=== PATIENT | female | born 1945 | race Hispanic/Latino ===

== ENCOUNTER 2022-08-02 17:58 | Emergency (ER) | payer OTHER, MEDICARE ==
[~2022-08-02] VITALS: Ht 152.4 cm; Wt 66.2 kg
[2022-08-02] MEDS ORDERED: LIDOCAINE HCL 2% VISCOUS 15 ML UDCUP PO ONE (19:00)
[2022-08-02] MEDS ORDERED: FAMOTIDINE 20MG VIAL IV ONE (19:00)
[2022-08-02] MEDS ORDERED: MAG/ALUM/SIMETH 30 ML UDCUP PO ONE (19:00)
[2022-08-02] MEDS ORDERED: DICYCLOMINE HCL 10 MG/5 ML ML PO ONE (19:00)
[2022-08-02] MEDS ORDERED: ONDANSETRON 4MG INJ IVP ONE (19:00)
[2022-08-02 19:22] LABS: BASOPHILS % (AUTO) 0.7 % (0.0-5.0); EOSINOPHILS % (AUTO) 2.1 % (0.0-8.0); HEMATOCRIT 40.8 % (36-48); LYMPHOCYTES % (AUTO) 31.9 % (21.0-51.0); MEAN CORPUSCULAR HGB CONC 33.1 g/dL (32.0-36.0); MEAN CORPUSCULAR VOLUME 90.7 fL (79-99); MONOCYTES % (AUTO) 8.3 % (3.0-13.0); NEUTROPHILS % (AUTO) 56.6 % (40.0-77.0); PLATELET COUNT (AUTO) 382 K/uL (130-400); RED CELL DISTRIBUTION WIDTH 14.1 % (11.0-15.5)
[2022-08-02 19:23] LABS: APPEARANCE,URINE CLEAR (CLEAR); BILIRUBIN,URINE NEGATIVE (NEGATIVE); COLOR,URINE YELLOW (YELLOW); GLUCOSE, URINE (UA) NEGATIVE (NEGATIVE); KETONES,URINE NEGATIVE (NEGATIVE); LEUKOCYTE ESTERASE ,URINE TRACE (NEGATIVE); NITRATE,URINE NEGATIVE (NEGATIVE); OCCULT BLOOD,URINE NEGATIVE (NEGATIVE); PROTEIN,URINE NEGATIVE (NEGATIVE); UROBILINOGEN,URINE 0.2 mg/dL (0.2-1.0)
[2022-08-02 19:28] LABS: CREATININE 3.7 mg/dL (0.5-1.5); POTASSIUM 3.4 mmol/L (3.5-5.1)
[2022-08-02 19:30] LABS: BACTERIA,URINE Few /HPF (None Seen); RBC,URINE 0-1 /HPF (0-1)
[2022-08-02 19:31] LABS: SQUAMOUS EPITHELIAL CELL,UR Rare /HPF (0-2)
[2022-08-02 19:35] LABS: TOTAL PROTEIN, SERUM 7.3 g/dL (6.0-8.3)
[2022-08-02] MEDS ORDERED: CEFTRIAXONE 1G VIAL IVP ONE (20:00)
[2022-08-02 20:17] VITALS: BP 132/71
[2022-08-02] MEDS ORDERED: CEPH500B PO (20:41)
[2022-08-02] MEDS ORDERED: DICY20TA2 PO (20:42)
[2022-08-02] MEDS ORDERED: FAMO-136 PO (20:42)
== END 2022-08-02 21:05 | disposition home or self-care (01) ==
LOC: EDH 17:58
DX: K29.70 Gastritis, unspecified, without bleeding (principal); N28.1 Cyst of kidney, acquired; E78.00 Pure hypercholesterolemia, unspecified
CPT/HCPCS: 99285; 96374; 76705; 71045; 96375; 84484; 80053; 83690; 85025; 87077; 87088; 87186; 81001; 36415; 93005; J3490; J0696; J2405

== ENCOUNTER 2023-11-10 16:14 | Emergency (ER) | payer OTHER, MEDICARE ==
[~2023-11-10] VITALS: Ht 152.4 cm; Wt 61.2 kg
[~2023-11-10 16:14] MED LIST: HYDR-4153 PO
[2023-11-10] MEDS ORDERED: ACETAMINOPHEN 500 MG TABLET PO ONE (18:00)
[2023-11-10 18:19] VITALS: TEMP 101.2
[2023-11-10 18:38] LABS: BASOPHILS # (AUTO) 0.05 K/uL (0.00-0.20); BASOPHILS % (AUTO) 0.3 % (0.0-5.0); EOSINOPHILS # (AUTO) 0.02 K/uL (0.00-0.70); EOSINOPHILS % (AUTO) 0.1 % (0.0-8.0); HEMATOCRIT 36.4 % (36-48); LYMPHOCYTES # (AUTO) 3.2 K/uL (1.0-4.8); LYMPHOCYTES % (AUTO) 20.2 % (21.0-51.0); MEAN CORPUSCULAR HGB CONC 32.4 g/dL (32.0-36.0); MEAN CORPUSCULAR VOLUME 83.3 fL (79-99); MONOCYTES # (AUTO) 1.2 K/uL (0.1-1.0); MONOCYTES % (AUTO) 7.4 % (3.0-13.0); NEUTROPHILS # (AUTO) 11.3 K/uL (1.8-7.7); NEUTROPHILS % (AUTO) 71.4 % (40.0-77.0); PLATELET COUNT (AUTO) 345 K/uL (130-400); RED BLOOD CELL COUNT(AUTO) 4.37 MIL/uL (4.00-5.50); RED CELL DISTRIBUTION WIDTH 15.3 % (11.0-15.5); WHITE BLOOD COUNT (AUTO) 15.9 K/uL (4.8-10.8)
[2023-11-10 18:50] LABS: ALBUMIN 2.4 g/dL (3.5-5.0); BILIRUBIN,TOTAL 0.5 mg/dL (0.2-1.0); CREATININE 0.7 mg/dL (0.5-1.5); POTASSIUM 3.1 mmol/L (3.5-5.1); TOTAL PROTEIN, SERUM 7.5 g/dL (6.0-8.3)
[2023-11-10 18:56] LABS: INFLUENZA TYPE A Negative For Type A (NEGATIVE); INFLUENZA TYPE B Negative For Type B (NEGATIVE)
[2023-11-10 19:15] LABS: SARS-CoV-2, RNA, NAAT NEGATIVE SARS CoV-2 (NEGATIVE)
[2023-11-10] MEDS ORDERED: METOCLOPRAMIDE 10 MG/2 ML VIAL IVP ONE (19:30)
[2023-11-10] MEDS ORDERED: ALBUTEROL 0.083% 2.5 MG/3 ML INH IH ONE (19:30)
[2023-11-10] MEDS ORDERED: LACTATED RINGERS 1000ML 1,000 ML IV ONE (19:30)
[2023-11-10] MEDS ORDERED: FAMOTIDINE 20MG VIAL IV ONE (19:30)
[2023-11-10 19:38] VITALS: PULSE 86; RESP 22
[2023-11-10] MEDS ORDERED: GUAI600T50 PO (21:29)
[2023-11-10] MEDS ORDERED: AUD IH (21:29)
[2023-11-10 22:24] VITALS: BP 125/81; PULSE 88; RESP 20; O2SAT 95
== END 2023-11-10 23:59 | disposition home or self-care (01) ==
LOC: EDH 16:14
DX: J45.998 Other asthma (principal); B34.9 Viral infection, unspecified; R53.1 Weakness; I10 Essential (primary) hypertension; Z20.822 Contact with and (suspected) exposure to COVID-19; Z98.890 Other specified postprocedural states
CPT/HCPCS: 99285; 96374; 71045; 87635; 96375; 84484; 80053; 85025; 87040 ×2; 87804 ×2; 83605; 36415; 74018; 93005; 94640; C9803; J3490; J2765